=== PATIENT | male | born 1990 | race Caucasian/White ===

== ENCOUNTER 2022-02-12 10:05 | Observation (INO) | payer BC ==
[~2022-02-12] VITALS: Ht 172.7 cm; Wt 136.6 kg
[2022-02-12 10:57] LABS: BASOPHILS % (AUTO) 0.5 % (0.0-5.0); EOSINOPHILS % (AUTO) 1.3 % (0.0-8.0); HEMATOCRIT 44.6 % (42-54); LYMPHOCYTES % (AUTO) 34.9 % (21.0-51.0); MEAN CORPUSCULAR HEMOGLOBIN 28.5 pg (27.0-33.0); MEAN CORPUSCULAR HGB CONC 32.7 g/dL (32.0-36.0); MEAN CORPUSCULAR VOLUME 87.1 fL (79-99); MONOCYTES % (AUTO) 7.2 % (3.0-13.0); NEUTROPHILS % (AUTO) 55.9 % (40.0-77.0); PLATELET COUNT (AUTO) 288 K/uL (130-400); RED BLOOD CELL COUNT(AUTO) 5.12 MIL/uL (4.50-6.20); RED CELL DISTRIBUTION WIDTH 13.6 % (11.0-15.5); WHITE BLOOD COUNT (AUTO) 8.3 K/uL (4.8-10.8)
[2022-02-12 11:01] LABS: CREATININE 1.1 mg/dL (0.5-1.5); POTASSIUM 4.2 mmol/L (3.5-5.1)
[2022-02-12 11:06] LABS: ALBUMIN 4.1 g/dL (3.5-5.0); TOTAL PROTEIN, SERUM 8.3 g/dL (6.0-8.3)
[2022-02-12 11:41] LABS: APPEARANCE,URINE CLEAR (CLEAR); BILIRUBIN,URINE NEGATIVE (NEGATIVE); COLOR,URINE YELLOW (YELLOW); GLUCOSE, URINE (UA) NEGATIVE (NEGATIVE); KETONES,URINE NEGATIVE (NEGATIVE); LEUKOCYTE ESTERASE ,URINE NEGATIVE Leu/uL (NEGATIVE); NITRATE,URINE NEGATIVE (NEGATIVE); OCCULT BLOOD,URINE NEGATIVE (NEGATIVE); PH,URINE 5.5 (5.0-8.0); PROTEIN,URINE NEGATIVE (NEGATIVE); UROBILINOGEN,URINE 0.2 mg/dL (0.2-1.0)
[2022-02-12] MEDS ORDERED: ONDANSETRON 4MG INJ IV PRN (12:30)
[2022-02-12] MEDS ORDERED: KETOROLAC 15MG/ML VIAL (15MG/ML) IM PRN (12:30)
[2022-02-12] MEDS ORDERED: KETOROLAC 30MG VIAL (30MG/ML) IVP PRN (12:30)
[2022-02-12] MEDS ORDERED: ACETAMINOPHEN 325 MG TAB PO PRN ×2 (12:30)
[2022-02-12] MEDS ORDERED: LOSA50TA64 PO (12:48)
[2022-02-12] MEDS: 0.9%NACL 1000ML 1,000 ML IV SCH ×2 (13:26→22:30)
[2022-02-12 15:02] VITALS: BP 143/68
[2022-02-12] MEDS ORDERED: OMEP40CA21 PO (16:18)
[2022-02-12] MEDS ORDERED: DOCU250C14 PO (16:18)
[2022-02-12] MEDS ORDERED: ONDA4TAB10 PO (16:18)
[2022-02-12] MEDS ORDERED: MONT-39 PO (16:18)
[2022-02-12 20:00] VITALS: BP 117/62
[2022-02-12] MEDS: FAMOTIDINE 20MG VIAL IV SCH (21:26)
[2022-02-13] VITALS: BP 104/52
[2022-02-13 03:58] VITALS: BP 127/69
[2022-02-13 07:00] VITALS: BP 139/81
[2022-02-13] MEDS: FAMOTIDINE 20MG VIAL IV SCH ×2 (09:08→20:27)
[2022-02-13] MEDS: 0.9%NACL 1000ML 1,000 ML IV SCH ×2 (09:10→17:45)
[2022-02-13 11:00] VITALS: BP 135/77
[2022-02-13 16:00] VITALS: BP 121/72
[2022-02-13 20:00] VITALS: BP 119/92
[2022-02-14] VITALS: BP 107/61
[2022-02-14 04:00] VITALS: BP 118/68
[2022-02-14 05:52] LABS: BASOPHILS % (AUTO) 0.5 % (0.0-5.0); EOSINOPHILS % (AUTO) 1.4 % (0.0-8.0); HEMATOCRIT 39.6 % (42-54); LYMPHOCYTES % (AUTO) 33.4 % (21.0-51.0); MEAN CORPUSCULAR HEMOGLOBIN 28.5 pg (27.0-33.0); MEAN CORPUSCULAR HGB CONC 32.3 g/dL (32.0-36.0); MEAN CORPUSCULAR VOLUME 88.2 fL (79-99); NEUTROPHILS % (AUTO) 56.4 % (40.0-77.0); PLATELET COUNT (AUTO) 230 K/uL (130-400); RED BLOOD CELL COUNT(AUTO) 4.49 MIL/uL (4.50-6.20); RED CELL DISTRIBUTION WIDTH 13.5 % (11.0-15.5)
[2022-02-14] MEDS: 0.9%NACL 1000ML 1,000 ML IV SCH (06:07)
[2022-02-14 06:15] LABS: ALBUMIN 3.3 g/dL (3.5-5.0); CRP QUANTITATIVE 9.4 mg/L (0.00-9.0); POTASSIUM 4.2 mmol/L (3.5-5.1); TOTAL PROTEIN, SERUM 6.6 g/dL (6.0-8.3)
[2022-02-14 06:54] LABS: ERYTHROCYTE SEDIMENTATION RATE 18 MM/HR (0-15)
[2022-02-14 07:30] VITALS: BP 114/70
[2022-02-14] MEDS: FAMOTIDINE 20MG VIAL IV SCH (08:10)
[2022-02-14 11:30] VITALS: BP 122/65
[2022-02-14] MEDS ORDERED: LEVO-70 PO (12:58)
[2022-02-14] MEDS ORDERED: BISA-189 PO (12:58)
[2022-02-14] MEDS ORDERED: KETO10TA2 PO (12:58)
[2022-02-14] MEDS ORDERED: METR-172 PO (12:58)
== END 2022-02-14 14:35 | disposition home or self-care (01) ==
LOC: EDH 10:05 → EDHIP 12:25 → 3CH 14:50
PROVIDERS: ADMIT Internal Medicine; ATTEND Internal Medicine
DX: K80.00 Calculus of gallbladder with acute cholecystitis without obstruction (principal); I10 Essential (primary) hypertension; R74.8 Abnormal levels of other serum enzymes; R79.89 Other specified abnormal findings of blood chemistry; Z79.899 Other long term (current) drug therapy
CPT/HCPCS: 96374; 96361 ×3; 99285; 80053 ×2; 83690; 85025 ×2; 81003; 36415 ×2; 76705; 74181; 96376 ×2; 85651; 86140; 78226; 84145; G0378 ×51; J3490 ×4; J7030; A9537